=== PATIENT | female | born 2000 | race Caucasian/White ===

== ENCOUNTER 2021-05-30 07:28 | Emergency (ER) | payer OTHER ==
[2021-05-30] MEDS ORDERED: cefTRIAXone\\ROCEPHIN 250 MG VIAL ONE (10:08)
[2021-05-30] MEDS ORDERED: Sterile Water 10 ML ONE (10:08)
[2021-05-31 20:40] LABS: Chlamydia by PCR Not Detected (NotDetected); GC by PCR Not Detected (NotDetected)
== END 2021-05-30 10:18 | disposition home or self-care (01) ==
LOC: CSHERS 07:28
DX: N76.0 Acute vaginitis (principal); B96.89 Other specified bacterial agents as the cause of diseases classified elsewhere; B37.3 Candidiasis of vulva and vagina; N83.201 Unspecified ovarian cyst, right side; E03.9 Hypothyroidism, unspecified; M79.7 Fibromyalgia; M19.90 Unspecified osteoarthritis, unspecified site
CPT/HCPCS: 76856; 87480; 87491; 87510; 87591; 87660; 96372; J0696

== ENCOUNTER 2021-08-08 03:34 | Emergency (ER) | payer OTHER ==
[2021-08-08] MEDS ORDERED: Ketorolac Tromethamine 30 MG/ML VIAL ONE (03:58)
== END 2021-08-08 05:03 | disposition home or self-care (01) ==
LOC: CSHERS 03:34
DX: R10.32 Left lower quadrant pain (principal); E03.9 Hypothyroidism, unspecified; M79.7 Fibromyalgia; E28.2 Polycystic ovarian syndrome; M19.90 Unspecified osteoarthritis, unspecified site; K58.9 Irritable bowel syndrome, unspecified; Z79.899 Other long term (current) drug therapy
CPT/HCPCS: 76856; 96372; J1885

== ENCOUNTER 2021-09-14 12:25 | Outpatient (CLI) | payer OTHER | END 2021-09-14 12:26 | disposition home or self-care (01) | LOC: CSHMRI 12:25 | PROVIDERS: ATTEND Nurse Practitioner Acute Care | DX: R20.2 Paresthesia of skin (principal) | CPT/HCPCS: 70553 ==

== ENCOUNTER 2022-03-04 13:17 | Emergency (ER) | payer BC, OTHER ==
[2022-03-04 14:46] LABS: Bilirubin Neg (Negative); Blood, Urine Negative (Negative); Clarity Cloudy (Clear); Glucose, Urine (Dipstick) Normal (Negative); Ketone, Urine Negative (Negative); Leukocyte 500 (Negative); Nitrite Negative (Negative); Protein, Urine (Dipstick) Negative (Neg-Trace); Urobilinogen Normal mg/dL (Less than 2)
[2022-03-04 14:54] LABS: Bacteria/HPF 3+ HPF (None Seen); RBC/HPF 0-3 HPF (0-3); WBC/HPF 21-50 HPF (0-3)
[2022-03-04 14:55] LABS: Mucous/LPF 1+ LPF (<2+)
== END 2022-03-04 15:32 | disposition home or self-care (01) ==
LOC: CSHERS 13:17
DX: M79.7 Fibromyalgia (principal); E03.9 Hypothyroidism, unspecified; M19.90 Unspecified osteoarthritis, unspecified site
CPT/HCPCS: 81003; 81015; 99283

== ENCOUNTER 2024-08-02 22:27 | Emergency (ER) | payer OTHER | END 2024-08-02 23:48 | disposition left against medical advice (07) | LOC: CSHERS 22:27 | DX: Z53.21 Procedure and treatment not carried out due to patient leaving prior to being seen by health care provider (principal) ==

== ENCOUNTER 2025-10-23 04:06 | Emergency (ER) | payer OTHER ==
[2025-10-23] MEDS ORDERED: Acetaminophen 500 MG TAB ONE (04:42)
[2025-10-23] MEDS ORDERED: Ketorolac Tromethamine 30 MG (1 mL) VIAL ONE (04:42)
== END 2025-10-23 05:16 | disposition home or self-care (01) ==
LOC: CSHERS 04:06
DX: H61.22 Impacted cerumen, left ear (principal); H92.02 Otalgia, left ear; M79.7 Fibromyalgia; F84.0 Autistic disorder; F17.290 Nicotine dependence, other tobacco product, uncomplicated
CPT/HCPCS: 69210; 96372; 99282; J1885